=== PATIENT | female | born 1960 | race Caucasian/White ===

== ENCOUNTER 2023-09-18 11:11 | Day surgery (SDC) | payer OTHER ==
[2023-09-13 11:30] VITALS: BMI 30.9
[2023-09-18] MEDS ORDERED: LIDOCAINE HCL/PF 2% SDV 5ML VIAL ONE (13:29)
[2023-09-18 14:03] VITALS: TEMP 98.1
[2023-09-18 14:06] VITALS: BP 110/68; PULSE 89; RESP 19
== END 2023-09-18 14:15 | disposition home or self-care (01) ==
LOC: FASU-ENDO 11:11
PROVIDERS: ATTEND Internal Medicine Gastroenterology
PROC: 0DB68ZX Excision of Stomach, Via Natural or Artificial Opening Endoscopic, Diagnostic (ICD-10-PCS; 2023-09-18)
PROC: 0DB28ZX Excision of Middle Esophagus, Via Natural or Artificial Opening Endoscopic, Diagnostic (ICD-10-PCS; 2023-09-18)
PROC: 0DB48ZX Excision of Esophagogastric Junction, Via Natural or Artificial Opening Endoscopic, Diagnostic (ICD-10-PCS; 2023-09-18)
PROC: 0DB98ZX Excision of Duodenum, Via Natural or Artificial Opening Endoscopic, Diagnostic (ICD-10-PCS; principal; 2023-09-18 13:34)
DX: K29.50 Unspecified chronic gastritis without bleeding (principal); K21.00 Gastro-esophageal reflux disease with esophagitis, without bleeding; K44.9 Diaphragmatic hernia without obstruction or gangrene; R13.10 Dysphagia, unspecified
CPT/HCPCS: 88305-TC; 88342-TC